=== PATIENT | female | born 1940 | race Caucasian/White ===

== ENCOUNTER 2017-01-18 17:35 | Emergency (ER) | payer MEDICARE, BC ==
[2017-01-18 18:00] VITALS: BP 189/91
[2017-01-18] MEDS ORDERED: Lidocaine 2% W/EPI 1:100,000* 20 ML MDV INJ ONE (18:55)
--- NOTE | 2017-01-18 19:28 | UC ---
Laceration HPI - HPI Summary HPI Summary: FELL BACKWARDS THREE HOURS [employer]IST, HIT HEAD ON WALL. NO LOC. NO NECK PAIN. NO HEADACHE. NO N/V. NO DISCHARGE FROM EARS OR NOSE. ON BLOOD THINNER. LACERATION TO POSTERIOR SCALP. - History Of Current Complaint Chief Complaint: UCHeadInjury Stated Complaint: HEAD INJURY/LACERATION Time Seen by Provider: 01/18/17 18:13 Hx Obtained From: Patient Hx Last Menstrual Period: age 51 Laceration Location: Head Mechanism Of Injury: Blunt Trauma Onset/Duration: Sudden Onset, Lasting Hours Severity: Moderate Aggravating Factors: Nothing - Allergies/Home Medications Allergies/Adverse Reactions: Allergies Allergy/AdvReac Type Severity Reaction Status Date / Time Acetaminophen [From Ultracet] Allergy Severe DISORIENTATION, Verified 01/18/17 18:00 VOMITING Tramadol [From Ultracet] Allergy Severe DISORIENTATION, Verified 01/18/17 18:00 VOMITING dust, mold Allergy Difficulty Uncoded 01/18/17 18:00 Breathing Home Medications: Home Medications Clopidogrel TAB* [Plavix TAB*] 75 mg PO DAILY 01/18/17 [History Confirmed ] PMH/Surg Hx/FS Hx/Imm Hx Previously Healthy: Yes - Surgical History Surgical History: Yes Surgery Procedure, Year, and Place: breast implants. Face lifts. RHINOPLASTY. RIGHT FOOT SX. TRIGGER FINGER RELEASE BOTH HANDS - Family History Known Family History: Positive: Hypertension, Respiratory Disease, Other - DJD Negative: Blood Disorder - Social History Occupation: Retired Lives: With Family Alcohol Use: Daily Alcohol Amount: 1 glass of red wine daily Substance Use Type: None Smoking Status (MU): Former Smoker Type: Cigarettes When Did the Patient Quit Smoking/Using Tobacco: quit in 1981 - Immunization History Most Recent Influenza Vaccination: yes Most Recent Tetanus Shot: UTD. Note added by Alex Tidwell RN at 1851 Review of Systems Constitutional: Negative Skin: Other - LACERATION POSTERIOR SCALP Eyes: Negative ENT: Negative Respiratory: Negative Cardiovascular: Negative Gastrointestinal: Negative Genitourinary: Negative Motor: Negative Neurovascular: Negative Musculoskeletal: Negative Neurological: Negative Psychological: Negative Is Patient Immunocompromised?: No All Other Systems Reviewed And Are Negative: Yes Physical Exam Triage Information Reviewed: Yes Appearance: Well-Appearing, No Pain Distress, Well-Nourished Vital Signs: Initial Vital Signs Temp 98.8 F 01/18/17 17:54 Pulse 63 01/18/17 17:54 Resp 16 01/18/17 17:54 BP 189/91 01/18/17 17:54 Pulse Ox 99 01/18/17 17:54 Vital Signs Reviewed: Yes Eye Exam: Normal ENT Exam: Normal ENT: Positive: Normal ENT inspection, Pharynx normal, TMs normal Dental Exam: Normal Neck exam: Normal Neck: Positive: Supple, Nontender, No Lymphadenopathy Respiratory Exam: Normal Respiratory: Positive: Chest non-tender, Lungs clear, Normal breath sounds, No respiratory distress Cardiovascular Exam: Normal Cardiovascular: Positive: RRR, No Murmur, Pulses Normal, Brisk Capillary Refill Abdominal Exam: Normal Musculoskeletal Exam: Normal Neurological Exam: Normal Psychological Exam: Normal Skin: Positive: Other - LACERATION POSTERIOR SCALP Laceration Repair - Laceration Repair 1 Laceration Size After Repair: Length (cm) - 3.5, Width (mm) - 5, Depth (mm) - 5 Type Injection: Local Anesthesia Used: 2.0% Lido Additive Used (in ml): Epi Cleansing Completed Via Routine Prep: Yes Irrigation With Pressure Irrigation Device: Yes Closure Material: Radu - 4 Suture Of: Skin, SQ Suture Type: Other - STAPLE Laceration Course/Dx - Differential Dx - Laceration/Wound Differental Diagnoses: Laceration Provider Diagnoses: POSTERIOR SCALP LACERATIOPN WITH REPAIR; HEAD INJURY Discharge - Discharge Plan Condition: Stable Disposition: HOME Patient Education Materials: Laceration (ED), Head Injury (ED), Staple Care (ED ) Referrals: Sofi Raphael MD [Primary Care Provider] - Additional Instructions: YOU HAVE FOUR RADU IN YOUR SCALP. PLEASE HAVE THE RADU REMOVED IN SEVEN DAYS. PLEASE SEEK EVALUATION AT THE EMERGENCY DEPARTMENT IF SYMPTOMS WORSEN OR IF ANY NEW SYMPTOMS DEVELOP.
== END 2017-01-18 19:39 | disposition home or self-care (01) ==
LOC: UCCORT 17:35
DX: S01.01XA Laceration without foreign body of scalp, initial encounter (principal); W18.30XA Fall on same level, unspecified, initial encounter; Y92.9 Unspecified place or not applicable
CPT/HCPCS: 12002; 99211; G0463

== ENCOUNTER 2017-01-25 12:16 | Emergency (ER) | payer MEDICARE, BC ==
[2017-01-25 14:03] VITALS: BP 177/78
--- NOTE | 2017-01-25 15:04 | UC ---
HPI Wound/Suture Re-check - HPI Summary HPI Summary: 76 female presents to ED for wound recheck and staple removal. 4 chuy placed in scalp 1 week ago for laceration after bumping head on a barrel. No complaints at this time, however unable to see area. No fever. No other complaints at this time. - History Of Current Complaint Chief Complaint: UCSkin Stated Complaint: SUTURE REMOVAL Time Seen by Provider: 01/25/17 14:09 Hx Obtained From: Patient Hx Last Menstrual Period: age 51 Onset/Duration: Sudden Onset Surgical Site: back of scalp Severity: Mild Pain Intensity: 0 Pain Scale Used: 0-10 Numeric Procedure Type: staple laceration Surgery Date: 01/18/17 - Allergies/Home Medications Allergies/Adverse Reactions: Allergies Allergy/AdvReac Type Severity Reaction Status Date / Time Acetaminophen [From Ultracet] Allergy Severe DISORIENTATION, Verified 01/25/17 14:02 VOMITING Tramadol [From Ultracet] Allergy Severe DISORIENTATION, Verified 01/25/17 14:02 VOMITING dust, mold Allergy Difficulty Uncoded 01/25/17 14:02 Breathing PMH/Surg Hx/FS Hx/Imm Hx - Additional Past Medical History Additional PMH: Denies HTN, DM - Surgical History Surgical History: Yes Surgery Procedure, Year, and Place: breast implants. Face lifts. RHINOPLASTY. RIGHT FOOT SX. TRIGGER FINGER RELEASE BOTH HANDS - Family History Known Family History: Positive: Hypertension, Respiratory Disease, Other - DJD Negative: Blood Disorder - Social History Alcohol Use: Daily Alcohol Amount: 1 glass of red wine daily Substance Use Type: None Smoking Status (MU): Former Smoker Type: Cigarettes When Did the Patient Quit Smoking/Using Tobacco: quit in 1981 - Immunization History Most Recent Influenza Vaccination: yes Most Recent Tetanus Shot: UTD. Note added by Alex Tidwell RN at 1851 Review of Systems Constitutional: Negative Skin: Other - staple removal Respiratory: Negative Cardiovascular: Negative Neurological: Negative All Other Systems Reviewed And Are Negative: Yes Physical Exam Triage Information Reviewed: Yes Appearance: Well-Appearing, No Pain Distress, Well-Nourished Vital Signs: Initial Vital Signs Temp 98.5 F 01/25/17 14:01 Pulse 63 01/25/17 14:01 Resp 14 01/25/17 14:01 BP 177/78 01/25/17 14:01 Pulse Ox 99 01/25/17 14:01 Vital Signs Reviewed: Yes Eyes: Positive: Conjunctiva Clear ENT: Positive: Normal ENT inspection, Hearing grossly normal Neck: Positive: Supple, Nontender Respiratory: Positive: Chest non-tender, Lungs clear, Normal breath sounds, No respiratory distress, No accessory muscle use Cardiovascular: Positive: RRR, No Murmur, Pulses Normal Musculoskeletal: Positive: Strength Intact, ROM Intact Neurological: Positive: Alert Skin: Positive: Other - 4 chuy removed from back of scalp without complication, mild erythema and edema of area with warmth, no abscess or discharge, no dehiscence. appears to be infected/irritated surrounding laceration area Course/Dx - Course Course Of Treatment: 4 chuy removed without complication. due to appearance of skin surrounding wound, erythema, edema etc. will treat with keflex. told to keep clean and dry. triple antibiotic and follow up. aware of worsening signs and symptoms to watch out for. - Differential Dx - Laceration/Wound Differential Diagnoses: Cellulitis, Dehiscence, Healing Wound, Other Provider Diagnoses: staple removal, cellulitis Discharge - Discharge Plan Condition: Stable Disposition: HOME Prescriptions: Cephalexin CAP* [Keflex CAP*] 500 mg PO BID #14 cap Patient Education Materials: Cellulitis (ED) Referrals: Sofi Raphael MD [Primary Care Provider] - Additional Instructions: Take prescribed medication to help treat infection. Recommend eating pashto yogurt or take probiotics. Apply triple antibiotic ointment on wound and keep clean and dry. Follow up with PCP. If symptoms worsen or do not improve please seek medical attention promptly.
== END 2017-01-25 15:12 | disposition home or self-care (01) ==
LOC: UCCORT 12:16
DX: J30.89 Other allergic rhinitis (principal); Z48.02 Encounter for removal of sutures; Z88.5 Allergy status to narcotic agent; Z87.891 Personal history of nicotine dependence

== ENCOUNTER 2017-11-01 10:28 | Emergency (ER) | payer MEDICARE, BC ==
--- NOTE | 2017-11-01 10:43 | UC ---
Upper Extremity HPI - HPI Summary HPI Summary: 77 F with hand pain. she fell last night. was bending over to change security system and fell forward,m hit head on table, then fell to rug carpeting and injured hand and hit head. no LOC. no TEAGUE. No vision changes. no neuro changes. left hand painful and swollen. toook ibuprofen 600 mg this am. no other pain. takes plavix for history of TIA > 2 years ago. otherwise feels fine. - History of Current Complaint Stated Complaint: LEFT HAND INJURY Time Seen by Provider: 11/01/17 10:41 Hx Obtained From: Patient Hx Last Menstrual Period: age 51 Onset/Duration: Sudden Onset Severity Initially: Moderate Severity Currently: Mild Aggravating Factor(s): Movement Alleviating Factor(s): Rest Associated Signs And Symptoms: Positive: Swelling, Bruising. Negative: Fever, Weakness - Allergies/Home Medications Allergies/Adverse Reactions: Allergies Allergy/AdvReac Type Severity Reaction Status Date / Time tramadol Allergy Severe disorientation, Verified 11/01/17 10:40 vomiting dust, mold Allergy Difficulty Uncoded 11/01/17 10:40 Breathing Home Medications: Home Medications Ferrous Gluconate 324 mg PO DAILY 11/01/17 [History Confirmed 11/01/17] Fluticasone-Salmeterol 100-50* [Advair Diskus 100-50*] 1 puff INH DAILY [History Confirmed 11/01/17] Nebivolol TAB (NF) [Bystolic TAB (NF)] 2.5 mg PO DAILY 11/01/17 [History Confirmed 11/01/17] Teriparatide [Forteo] 2.4 ml INJ DAILY 11/01/17 [History Confirmed 11/01/17] PMH/Surg Hx/FS Hx/Imm Hx Previously Healthy: Yes Endocrine History: Dyslipidemia Cardiovascular History: Hypertension Neurological History: TIA Psychological History: Anxiety, Depression - Surgical History Surgical History: Yes Surgery Procedure, Year, and Place: breast implants. Face lifts. RHINOPLASTY. RIGHT FOOT SX. TRIGGER FINGER RELEASE BOTH HANDS - Family History Known Family History: Positive: Hypertension, Respiratory Disease, Other - DJD Negative: Blood Disorder - Social History Occupation: Retired Alcohol Use: Daily Alcohol Amount: 1 glass of red wine daily Substance Use Type: None Smoking Status (MU): Former Smoker Type: Cigarettes When Did the Patient Quit Smoking/Using Tobacco: quit in 1981 - Immunization History Most Recent Influenza Vaccination: yes Most Recent Tetanus Shot: UTD. Note added by Alex Tidwell RN at 1851 Review of Systems Skin: Bruising Musculoskeletal: Arthralgia, Decreased ROM, Edema Is Patient Immunocompromised?: No All Other Systems Reviewed And Are Negative: Yes Physical Exam Triage Information Reviewed: Yes Appearance: Well-Appearing, No Pain Distress, Well-Nourished Vital Signs Reviewed: Yes Eyes: Positive: Conjunctiva Clear ENT: Positive: Normal ENT inspection Respiratory Exam: Normal Cardiovascular Exam: Normal Musculoskeletal: Positive: Strength Limited @, ROM Limited @ - left hand extensive swelling diffusely. no wrist concerns. normal exam. normal elbow exam. , Edema @ - left hand Neurological Exam: Normal Neurological: Positive: Alert Psychological Exam: Normal Skin Exam: Normal Skin: Positive: Other - left supraorbital area with ecchymosis that extends superiorly to the hair line. no mills sign. no neuro deficits. normal sensation . CN 2-12 intact. Diagnostics - Laboratory ABG Interpretation: IMPRESSION: Diagnostic Studies Completed/Ordered: IMPRESSION: #. Severe soft tissue swelling without evidence for fracture. Upper Extremity Course/Dx - Course Course Of Treatment: with trauma and on blood thinner imaging ordered. no concerns for internal bleed. monitor Sx and if any concerns go to ED. they are aware no labs here so limited evaluation -- with negative CT for concerns will advise to monitor at home and f/u with PCP. stay with fam member at this time for 24 hours. IMPRESSION: #. No CT evidence for intracranial hemorrhage or traumatic brain injury. #. Moderate central to LEFT forehead and temporal region scalp hematoma. No calvarial or. skull base fracture evident. #. Mild involutional change and stigmata of chronic small vessel ischemic disease. IMPRESSION: LEFT SUPRAORBITAL SOFT TISSUE SWELLING. FINDINGS OF MILD CHRONIC MAXILLARY. ANTRAL SINUSITIS. NO ACUTE FINDINGS. Son and patient aware of results and will monitor pt at this time . follow up for BP also - Differential Dx/Diagnosis Differential Diagnosis/HQI/PQRI: Arthritis, Contusion, Fracture (Closed), Hematoma, Strain, Sprain Provider Diagnoses: Left hand contusion Discharge - Sign-Out/Discharge Documenting (check all that apply): Discharge/Admit/Transfer - Discharge Plan Condition: Good Disposition: HOME Patient Education Materials: Hematoma (ED) Referrals: Sofi Raphael MD [Primary Care Provider] - 4 Days Additional Instructions: Your imaging did not show any acute concerns today. Your blood pressure was elevated we advise low dosium diet and follow up with your primary care physician - Billing Disposition and Condition Condition: GOOD Disposition: Home
--- NOTE | 2017-11-01 11:55 | RAD ---
INDICATION: LEFT hand pain and bruising post fall yesterday. COMPARISON: No relevant prior exams available on the [facility] PACS for comparison. TECHNIQUE: AP, lateral, and oblique views LEFT hand. REPORT: Severe soft tissue swelling over the dorsum of the wrist and hand most marked through the metacarpal phalangeal joint level distally. Negative for fracture or malalignment. Bone density appears decreased throughout. 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 IMPRESSION: #. Severe soft tissue swelling without evidence for fracture.
--- NOTE | 2017-11-01 11:59 | RAD ---
Indication: Fall. Anticoagulated. Comparison: No relevant prior exams available on the [facility] PACS for comparison. Technique: Noncontrast CT vertex of skull through foramen magnum. Report: Moderate central to LEFT forehead and temporal region scalp hematoma. No calvarial or skull base fracture evident. The sulci, ventricles, and basal cisterns are normal for age. Zepeda matter white matter differentiation is preserved without evidence for edema. Decreased density in the periventricular and subcortical white matter while non-specific is most likely due to chronic microangiopathy. No intra or extra axial hemorrhage is detected. Unremarkable visualized orbital contents. The visualized paranasal sinuses and mastoid air spaces are clear. IMPRESSION: #. No CT evidence for intracranial hemorrhage or traumatic brain injury. #. Moderate central to LEFT forehead and temporal region scalp hematoma. No calvarial or skull base fracture evident. #. Mild involutional change and stigmata of chronic small vessel ischemic disease.
--- NOTE | 2017-11-01 12:02 | RAD ---
INDICATION: Fall. Left facial injury COMPARISON: CT brain same date TECHNIQUE: Axial source images were acquired from the vertex of the mandible through the orbits. Coronal and sagittal reconstructed images were acquired. FINDINGS: Bones: There is no acute facial bone fracture. Orbits: The globes and intraconal structures appear intact. The optic nerves are symmetric. Extraocular muscles appear normal. There is no intraconal inflammatory change or retrobulbar mass.. Paranasal sinuses: There is mild circumferential mucoperiosteal thickening involving the maxillary antra bilaterally consistent with mild chronic sinusitis. The remaining paranasal sinuses are clear. Brain: There are no acute abnormalities of the visualized brain parenchyma. Soft tissues: There is left supraorbital soft tissue swelling Other: None The visualized soft tissue elements about the neck appear normal. IMPRESSION: LEFT SUPRAORBITAL SOFT TISSUE SWELLING. FINDINGS OF MILD CHRONIC MAXILLARY ANTRAL SINUSITIS. NO ACUTE FINDINGS.
[2017-11-01 12:04] VITALS: BP 157/65
== END 2017-11-01 12:11 | disposition home or self-care (01) ==
LOC: UCCORT 10:28
DX: S60.222A Contusion of left hand, initial encounter (principal); W19.XXXA Unspecified fall, initial encounter; Y93.89 Activity, other specified; Y92.009 Unspecified place in unspecified non-institutional (private) residence as the place of occurrence of the external cause; Z88.5 Allergy status to narcotic agent; I10 Essential (primary) hypertension; G45.9 Transient cerebral ischemic attack, unspecified; Z79.01 Long term (current) use of anticoagulants; Z87.891 Personal history of nicotine dependence
CPT/HCPCS: 70450; 70486; 99211; G0463